=== PATIENT | male | born 1965 | race Caucasian/White ===

== ENCOUNTER → 2020-05-04 09:43 | Outpatient (BNVA) | payer MEDICAID, SELFPAY | PROVIDERS: PCP Internal Medicine Geriatric Medicine; Referring Provider Internal Medicine Geriatric Medicine; Visit Provider Surgery | DX: K40.90 Unilateral inguinal hernia, without obstruction or gangrene, not specified as recurrent (principal) | CPT/HCPCS: 99212 ==

== ENCOUNTER 2020-05-16 08:55 | Day surgery (SDC) | payer MEDICAID, SELFPAY ==
[2020-05-11 09:22] VITALS: BMI 27.2
[2020-05-16] VITALS (14 sets, daily range): BP systolic 120–185; BP diastolic 74–101; PULSE 56–87; RESP 10–22; TEMP 36.8–36.9; O2SAT 93–98
[2020-05-16] MEDS: ceFAZolin Sodium/Dextrose,Iso 2 GM/50 ML PIGGYBACK IV (09:46)
--- NOTE | 2020-05-16 10:02 | MHC.SHP ---
Pre-Procedural Eval Section B Chief Complaint: Left Inguinal Hernia Allergies: Allergies Allergy/AdvReac Type Severity Reaction Status Date / Time Penicillins [PENICILLINS] Allergy Unknown UNKNOWN Verified 05/11/20 09:32 Plan Patient has been examined and remains a candidate for the planned procedure
--- NOTE | 2020-05-16 10:37 | HO.ANESPROP2 ---
[facility] Past Medical History Medical History Anemia Depression Hepatitis C Left inguinal hernia Polycystic kidney disease Family History Family History Sister History of lung cancer Maternal Aunt History of leukemia Family history of brain aneurysm Surgical History Surgical History History of liver biopsy History of right knee surgery Social History Social History Alcohol intake: never Smoking Status: Current every day smoker Cigarettes Per Day: 5 Substance Use Type: Heroin Last Used Substance Other:: 04/2019, on methadone Advance Directives: No Advance Directives Information Provided: No Advance Directives on File: No Meds Allergies Allergy/AdvReac Type Severity Reaction Status Date / Time Penicillins [PENICILLINS] Allergy Unknown UNKNOWN Verified 05/11/20 09:32 Home Medications Medication Instructions Recorded Confirmed Type clonidine HCl 0.1 mg tablet 0.1 mg PO DAILY tab 05/04/20 05/11/20 History hydroxyzine pamoate 50 mg capsule 75 mg PO BEDTIME cap 05/04/20 History methadone 10 mg/mL oral concentrate 90 mg PO DAILY ml 05/04/20 05/16/20 History mirtazapine 30 mg tablet 30 mg PO DAILY 05/04/20 05/11/20 History Exam Exam Date and Time: May 16, 2020 1037 Height,Weight and Vital Signs: Height 5 ft 10 in Weight 86.183 kg Last Vital Signs Temp 98.2 F 05/16/20 09:35 Pulse 56 05/16/20 09:35 Resp 18 05/16/20 09:35 BP 135/85 05/16/20 09:35 Pulse Ox 97 05/16/20 09:35 Airway Mallampati Class: II TM Dist: >3cm Neck ROM: Limited Assessment and Plan Assessment Anesthesia Assessment: Anesthesia Plan Discussed and Chart Reviewed Final Anesthetic Review NPO: Yes ASA Class: III Final Preanesthetic Review: No Changes in Pt Med Stat, Meds/Allgs Chart Reviewed, Consent Obtained/Reviewed and Anes Risks/Benef Reviewed Patient Risk: Intermediate Procedure Risk: Low Assessment/Block/Sedation in SS: Assess/Block/Sedation-SS Anesthetic Plan Anesthetic Plan: GA Disposition: Standard PACU
--- NOTE | 2020-05-16 11:22 | PM.OP ---
Brief Operative Note Date of Service: 05/16/20 Pre-op diagnosis: LIH, chornically incarcerated with omentum Post-op diagnosis: same Procedure: repair of LIH with mesh Implants: mesh Surgeon: Sam Rice MD Anesthesia: GLMA Alfalfa Dehydrator Operator: Aleisha Harkins Estimated blood loss (mL): 10 Pathology: other (sac) Condition: stable Disposition: PACU
[2020-05-16] MEDS: ondansetron HCL 4 MG/2 ML VIAL IVPUSH (11:40)
[2020-05-16] MEDS: oxyCODONE HCl Immed Release 5 MG TABLET PO ×2 (11:41→12:57)
[2020-05-16] MEDS: fentaNYL citrate/PF 100 MCG/2 ML VIAL 50 MCG IVPUSH ×3 (11:42→12:04)
--- NOTE | 2020-05-16 12:21 | OP_ITS ---
SURGEON: Sam Rice MD INDICATIONS: The patient is a 54-year-old male, who has had a mass in the left groin. This was partially reducible. The patient states that he could feel this in his scrotum as well. This appeared to be an inguinal scrotal hernia. In view of symptoms, he wanted to proceed with repair. He understood technique of repair with mesh. He was aware of the risks, benefits, and alternatives. He did have significant comorbid conditions including chronic kidney disease as well as hepatitis C, but otherwise, he appeared to be in appropriate for surgical intervention. PREOPERATIVE DIAGNOSIS: Chronically incarcerated left inguinal hernia. POSTOPERATIVE DIAGNOSIS: Chronically incarcerated left inguinal hernia with omentum, indirect. PROCEDURE PERFORMED: Repair of chronically incarcerated left inguinal hernia. ESTIMATED BLOOD LOSS: About 5 cc. The patient was extubated without difficulty and transferred to recovery room with stable vital signs. COMPLICATIONS: The patient tolerated the procedure well. There were no complications noted. Initial and final counts of sponges and instruments were correct. ANESTHESIA: ASSISTANTS: SPECIMENS: POULTRY SCALDER: Aleisha Harkins PA-C. DESCRIPTION OF PROCEDURE: He was brought to the operating room and placed in supine position under general anesthesia via laryngeal mask airway. The left groin was prepped and draped in usual sterile fashion. A surgical time-out was done. The patient received cefazolin 2 g IV preoperatively. I infiltrated the planned line of incision using lidocaine 1%. I made a generous incision along an imaginary line from anterior-superior iliac spine to the pubic ramus using blade 15. This was carried down to full-thickness skin and thick subcutaneous fat until we were able to visualize the external oblique aponeurosis and external ring. I bluntly dissected the external ring to expose this. I made an incision on the fibers of the external ring using blade 15 extended inferomedially to connect with the external ring. At this point, therefore, the inguinal canal was entered. I bluntly dissected the underside of the external oblique aponeurosis to create space for the mesh. Examination of the spermatic cord and the inguinal canal revealed a very large sac. I initially attempted to do blunt dissection of the spermatic cord along with its contents including the sac using an index finger. However, in view of very large size, I was unable to pass my finger around this. The hernia contents seem to travel all the way into the scrotum as well. In view of the size of this massive hernia, I felt that it would be unable to define the cord contents until we were able to reduce this. I therefore had to open the hernia sac. Large amount of omentum was noted, which has been chronically incarcerated within the sac. I pulled up the omentum all the way from the scrotum and brought this on the field. This was able to reduce the entire omentum back through the internal ring completely, despite the large amount of omentum that was present. By doing so, I was able to clearly visualize the rest of the sac from both within and outside of this sac itself. This was very large sac and was very intimately adherent to the rest of the cord contents. I was able to identify the vas deferens along with accompanying vessels. I the sac gently from the rest of the cord contents by using blunt dissection. In view of the very large sac, I excised this using electrocautery and part of this was sent as specimen. We made sure that the edges of the divided sac was hemostatic. Once hemostasis was ensured, this was an indirect hernia as the entire hernia contents were reduced through the internal ring. I then used a large-sized Prolene plug and used to reenforce the internal ring. The plug was secured with Prolene 2-0 suture to the shelving edge of the inguinal ligament laterally and the internal oblique superiorly and medially using Prolene 2-0 sutures through the inner leaves of the plug. I reinforced the floor of the canal with keyhole mesh. The tails of the mesh were passed around the cord at the level of internal ring and was secured with Prolene 2-0 sutures. I flattened the mesh in the floor of the canal. This mesh was secured with Prolene 2-0 sutures to the shelving edge of the inguinal ligament laterally and the internal oblique superiorly and medially as well as the pubic ramus inferomedially. We observed for hemostasis. We then copiously irrigated. We then proceeded to close the fascia of the external oblique aponeurosis in a running Dexon 2-0 stitch to re-create the external ring. The thick subcutaneous layer was reapposed with Dexon 3-0 sutures. Skin closure achieved with Dexon 4-0 subcuticular running stitch. Steri-Strips and dressings were applied. The incision was infiltrated with Marcaine 0.5% for postop analgesia. The procedure was then completed. MD KACEY Avila/MASON / [id number]
--- NOTE | 2020-05-16 14:39 | HO.POSTANES ---
Post Anesthesia Evaluation Post Anesthesia Evaluation Vital Signs: Vital Signs Temp Pulse Resp BP Pulse Ox 05/16/20 12:55 98.5 F 77 16 120/80 95 05/16/20 12:25 62 18 138/74 98 05/16/20 12:10 66 16 130/86 97 05/16/20 12:05 67 14 142/83 H 98 05/16/20 12:04 16 05/16/20 11:55 63 12 147/92 H 98 05/16/20 11:49 20 05/16/20 11:45 69 10 L 174/79 H 98 05/16/20 11:42 22 H 05/16/20 11:40 75 15 182/101 H 94 05/16/20 11:35 74 20 185/87 H 94 05/16/20 11:30 86 20 172/97 H 93 05/16/20 11:25 98.5 F 87 16 179/87 H 96 05/16/20 09:35 98.2 F 56 18 135/85 97 Anesthesia: General LMA Mental Status: Awake Pain Control: Satisfactory Nausea/Vomiting: None Hydration: Adequate Anesthesia-Related Issues: No Anes. Related Issues
== END 2020-05-16 13:33 | disposition home or self-care (01) ==
PROVIDERS: PCP Internal Medicine Geriatric Medicine; Visit Provider Surgery
PROC: (CPT 49507; principal; 2020-05-16 11:20)
DX: K40.30 Unilateral inguinal hernia, with obstruction, without gangrene, not specified as recurrent (principal); B19.20 Unspecified viral hepatitis C without hepatic coma; F32.9 Major depressive disorder, single episode, unspecified; Z88.0 Allergy status to penicillin; Q61.3 Polycystic kidney, unspecified; F17.210 Nicotine dependence, cigarettes, uncomplicated; F11.20 Opioid dependence, uncomplicated; Z79.899 Other long term (current) drug therapy
CPT/HCPCS: 49507; 88302; C1781; J0690; J1100; J2405; J3010

== ENCOUNTER → 2020-05-29 13:09 | Outpatient (BNVA) | payer MEDICAID, SELFPAY | PROVIDERS: PCP Internal Medicine Geriatric Medicine; Visit Provider Surgery | DX: K40.90 Unilateral inguinal hernia, without obstruction or gangrene, not specified as recurrent (principal) | CPT/HCPCS: 99212 ==

== ENCOUNTER 2020-12-21 08:50 | Outpatient (REF) | payer MEDICAID, SELFPAY ==
--- NOTE | ~2020-12-21 | US_ITS ---
EXAMINATION: US COMPLETE ABDOMEN WITH LIVER ELASTOGRAPHY CLINICAL INFORMATION: Chronic viral hepatitis C COMPARISON: Previous ultrasound February 2019 TECHNIQUE: Real-time imaging of the abdominal viscera. Noninvasive ultrasound liver fibrosis assessment is performed using Su ElastPQ point quantification shear wave elastography (pSWE) with a C5-2 MHz transducer. Multiple elastography samples are obtained. FINDINGS: PANCREAS: Normal. ABDOMINAL AORTA: There is mild dilatation of the distal abdominal aorta measuring 2.3 x 2.8 cm. The abdominal aorta is otherwise normal in caliber. INFERIOR VENA CAVA: Visualized portions are normal. LIVER: Liver echotexture is slightly increased. Liver echotexture is slightly heterogeneous. The liver is normal in size and contour. There is a cyst in the right lobe of the liver measuring 8 mm. No other focal liver lesion is seen. Intrahepatic biliary duct dilatation. The right lobe measures 14 cm in length. The left lobe measures 12 cm in length. Portal flow is normal/hepatopedal Shear wave liver elastography median stiffness is 2.4 m/s (reference: normal median stiffness is 1.3 m/s or less). IQR/median stiffness to assess sampling precision is 0.2 (reference: good quality data set is IQR/median stiffness of 0.15 or less). GALLBLADDER: Normal. The gallbladder is physiologically distended without evidence of stones, sludge, polyps, wall thickening or pericholecystic fluid. COMMON BILE DUCT: Normal in caliber measuring 0.4 cm in diameter. RIGHT KIDNEY: Polycystic kidney. Renal parenchyma is essentially replaced with cysts. No stone, mass or hydronephrosis seen. The right kidney measures 14.5 cm. LEFT KIDNEY: Polycystic kidney. Renal parenchyma is essentially replaced with cysts. No stone, mass or hydronephrosis seen. The left kidney measures 14.5 cm.. SPLEEN: The spleen is slightly enlarged. The spleen measures 13.2 cm in maximum dimension. FREE FLUID: None. US/US abdomen comp w elastography IMPRESSION: 1. Impression: Echogenic slightly heterogeneous appearing liver. No evidence of cirrhosis. Small simple appearing cyst in the right lobe. No other focal liver lesion. Slightly dilated distal abdominal aorta. Polycystic kidneys. 2. Liver elastography: Limited due to sampling error. Liver stiffness is increased suggestive of clinically significant liver disease. REFERENCE: Society of Radiologists in Ultrasound Liver Stiffness Thresholds (2020): LIVER STIFFNESS THRESHOLDS: *Liver Stiffness equal or less than 1.3 m/s: High probability of being normal. *Liver Stiffness less than 1.7 m/s: In the absence of other known clinical signs, rules out compensated advanced chronic liver disease. *Liver Stiffness 1.7-2.1 m/s: Suggestive of compensated advanced chronic liver disease but need further test for confirmation. *Liver Stiffness over 2.1 m/s: Rules in compensated advanced chronic liver disease. *Liver Stiffness over 2.4 m/s: Suggestive of clinically significant portal hypertension. QUALITY OF DATA SET: *IQR/Median value equal or less than 0.15 implies a quality data set. *IQR/Median value over 0.15 implies a poor quality data set. SIGNIFICANT CHANGE FROM PRIOR EXAM: Significant change if liver stiffness measurement is 10% or greater from prior exam. OTHER CONSIDERATIONS: The stage of liver fibrosis may be overestimated in the setting of acute hepatitis, liver inflammation, elevated liver function tests, hepatic vascular congestion, obstructive cholestasis, non-fasting state, and infiltrative diseases such as amyloidosis and lymphoma. In some patients with NAFLD, the liver stiffness thresholds for compensated advanced chronic liver disease may be lower. In causes other than viral hepatitis and NAFLD, liver stiffness thresholds are not well established.
== END 2020-12-21 08:51 | disposition home or self-care (01) ==
LOC: HO.US 08:50
PROVIDERS: Visit Provider Internal Medicine
DX: B18.2 Chronic viral hepatitis C (principal)
CPT/HCPCS: 76705; 76981

== ENCOUNTER 2021-04-10 08:54 | Emergency (ER) | payer MEDICAID, SELFPAY ==
[2021-04-10 08:59] VITALS: BP 153/89; PULSE 70; RESP 16; TEMP 37.2; O2SAT 97; BMI 21.5
[2021-04-10] MEDS: cephALEXin 500 MG CAPSULE PO (09:49)
[2021-04-10] MEDS: Lidocaine HCl 1 % MPF 5 ML VIAL SUBCUT (09:50)
--- NOTE | 2021-04-10 10:15 | ED.WOUNDLAC ---
HPI - Wound/Laceration General Chief Complaint: Wound/Laceration Stated Complaint: inf wound Time Seen by Provider: 04/10/21 09:28 Source: patient Mode of arrival: ambulatory Limitations: no limitations History of Present Illness HPI narrative: 55-year-old male presenting to the ED with an abscess to his right lower back after he had a fall approximately 1 week ago and landed on some glass he was able to take out the piece a glass although since then he has been developed some swelling and redness. He denies any other injury complaints or concerns. Denies any other symptoms complaints or concerns. Onset (ago): week(s) (One week) Location: back Context: accidental Associated symptoms: pain Related Data Home Medications Medication Instructions Recorded Confirmed clonidine HCl 0.1 mg tablet 0.1 mg PO DAILY tab 05/04/20 05/11/20 hydroxyzine pamoate 50 mg capsule 75 mg PO BEDTIME cap 05/04/20 (Vistaril) methadone 10 mg/mL oral 90 mg PO DAILY ml 05/04/20 05/16/20 concentrate (Methadone Intensol) mirtazapine 30 mg tablet (Remeron) 30 mg PO DAILY 05/04/20 05/11/20 Previous Rx's Medication Instructions Recorded oxycodone 5 mg tablet 5 mg PO Q4H PRN #30 tab 05/16/20 acetaminophen 500 mg tablet 1,000 mg PO QID PRN #14 tab 04/10/21 (Tylenol Extra Strength) cephalexin 500 mg capsule 500 mg PO Q6H 10 Days #40 cap 04/10/21 doxycycline monohydrate 100 mg 100 mg PO BID 10 Days #20 cap 04/10/21 capsule ibuprofen 800 mg tablet 800 mg PO Q8H PRN #14 tab 04/10/21 Allergies Allergy/AdvReac Type Severity Reaction Status Date / Time Penicillins [PENICILLINS] Allergy Unknown UNKNOWN Verified 05/29/20 13:51 Review of Systems Review of Systems: Constitutional : No Fever, No Chills, Cardiovascular : No Chest Pain, No SOB Respiratory : No Dyspnea Gastrointestinal : No abdominal pain Musculoskeletal : No Joint Swelling Skin : positive skin erythema/warmth to touch/tender to palpation and fluctuance, no skin laceration, No Foreign bodies, No rash Neuro : No Weakness, No Numbness/tingling Psych : No SI/HI/thoughts of self injury Yes all other systems are reviewed and are negative [facility] Past Medical History Attestation statement: The following information was validated with the patient. Medical History Anemia Depression Hepatitis C Left inguinal hernia Polycystic kidney disease Surgical History History of liver biopsy History of right knee surgery Family History Family History Sister History of lung cancer Maternal Aunt History of leukemia Family history of brain aneurysm Social History Social History Alcohol intake: never Cigarettes Per Day: 5 Substance Use Type: Heroin Advance Directives: No Advance Directives Information Provided: No Physical Exam Vital Signs: Vital Signs: Last Vital Signs Temp 99.0 F 04/10/21 08:59 Pulse 70 04/10/21 08:59 Resp 16 04/10/21 08:59 BP 153/89 H 04/10/21 08:59 Pulse Ox 97 04/10/21 08:59 Body Mass Index 21.5 vital signs have been reviewed as normal and appeared to be correct. Blood pressure hypertensive 153/89. Herat rate normal. Respiration rate normal. Temperature normal. Oxygen saturation normal. Appearance: Alert. Oriented X3. No acute distress. Head: Normal external exam. Normocephalic. Atraumatic. Eyes: PERRLA. EOMI. Conjunctiva and sclera normal. Eyelids normal. ENT: Pharynx normal. Uvula midline. Moist mucous membranes. Neck: Normal inspection. Neck supple. FROM. CVS: Normal heart rate and rhythm. Respiratory: No respiratory distress. Painless inspiration. Skin: To right back patient has a moderate size fluctuant abscess/wound not currently draining although fluctuant and noted to have surrounding erythema/warm to touch and tender to palpation. No streaking/induration/foreign bodies or purulent drainage noted at this time. The rest of the Skin is warm and dry. Normal skin color. Normal skin turgor. No additional rashes/lesions/lacerations noted. Extremities: No lower extremity edema. Extremities exhibit normal range of motion. Extremities nontender. Neuro: Oriented X 3. No motor deficit. No sensory deficit. Reflexes normal. Normal steady gait. No focal neuro deficits noted. Vascular: + radial pulses/+ 2 distal pedal pulses/+2 dorsalis pedis b/l. Normal cap refill. No cyanosis noted to upper extremity nails and lower extremity toes nails. Course Course Course Narrative: Patient now status post I&D of right lower back abscess despite providing 5 mL of lidocaine patient had moderate pain and he wanted me to stop and he did not want me to place any packing therefore explained to him that he needs to return in 2 days for recheck wound and to return sooner if any worsening symptoms will DC home with doxycycline and Keflex along with Motrin Tylenol as patient is on methadone and to follow-up with primary care provider as well. Patient understand agree to this plan. MDM - Wound/Laceration Medical Records Attestation: I reviewed the patient's medical records. Procedures Abscess I/D Site: back Side (if applicable): right Local Anesthetic: lidocaine 1% Amount of anesthesia used (mL): 5 Technique: incised with blade Amount of fluid expressed (mL): 10 Sent for culture/gram staining?: No Irrigation: Yes Packing used?: none Complications: pain and other (Otherwise no other complications) Discharge Plan Discharge Clinical Impression: Abscess, Cellulitis of back Patient Disposition: Home, Self-Care Instructions: Cellulitis (ED), Abscess Incision and Drainage (DC) Prescriptions: New ibuprofen 800 mg tablet 800 mg PO Q8H PRN (Reason: pain) Qty: 14 RF: 0 acetaminophen [Tylenol Extra Strength] 500 mg tablet 1,000 mg PO QID PRN (Reason: fever or pain) Qty: 14 RF: 0 doxycycline monohydrate 100 mg capsule 100 mg PO BID 10 Days Qty: 20 RF: 0 cephalexin 500 mg capsule 500 mg PO Q6H 10 Days Qty: 40 RF: 0 No Action oxycodone 5 mg tablet 5 mg PO Q4H PRN (Reason: pain) Qty: 30 RF: 0 methadone [Methadone Intensol] 10 mg/mL concentrate 90 mg PO DAILY RF: 0 mirtazapine [Remeron] 30 mg tablet 30 mg PO DAILY RF: 0 clonidine HCl 0.1 mg tablet 0.1 mg PO DAILY RF: 0 hydroxyzine pamoate [Vistaril] 50 mg capsule 75 mg PO BEDTIME RF: 0 Referrals: Jess Lau PA [Emergency Midlevel Provider] - 2 days (for recheck wound/abscess/cellulitis) Name,MD Frank [Primary Care Provider] - 2 days Stand Alone Forms: Work/School Release Print Language: Malawian
== END 2021-04-10 10:26 | disposition home or self-care (01) ==
PROVIDERS: Emergency Provider Emergency Medicine; PCP Internal Medicine Geriatric Medicine
DX: L02.212 Cutaneous abscess of back [any part, except buttock and flank] (principal); L03.312 Cellulitis of back [any part except buttock and flank]; M54.50 Low back pain, unspecified; F11.10 Opioid abuse, uncomplicated; Z79.899 Other long term (current) drug therapy
CPT/HCPCS: 10060; 99283; 99284

== ENCOUNTER 2021-06-26 16:53 | Emergency (ER) | payer MEDICAID, SELFPAY ==
--- NOTE | 2021-06-26 | ECG_ITS ---
Test Reason : MEDICAL CLEARANCE Blood Pressure : / mmHG Vent. Rate : 048 BPM Atrial Rate : 048 BPM P-R Int : 174 ms QRS Dur : 086 ms QT Int : 464 ms P-R-T Axes : 070 -16 060 degrees QTc Int : 414 ms Sinus bradycardia Otherwise normal ECG No previous ECGs available Referred By: Generic ED Physician Electronically Signed By:Calin Gonzales
--- NOTE | ~2021-06-26 | XR_ITS ---
EXAMINATION: XR CHEST CLINICAL INFORMATION: TB false positive COMPARISON: None TECHNIQUE: Frontal view of the chest was obtained. FINDINGS: No significant abnormality is noted involving the heart, lungs, mediastinum, bony thorax or soft tissues. XR/XR chest 1V IMPRESSION: Unremarkable examination.
[2021-06-26 18:29] VITALS: BP 178/94; PULSE 59; RESP 16; TEMP 36.7; O2SAT 96; BMI 21.5
[2021-06-26 21:24] LABS: COVID-19 Test Negative (Negative)
[2021-06-26 21:30] LABS: Alanine Aminotransferase 29 U/L (0-40); Alkaline Phosphatase 70 U/L (39-117); Anion Gap 14 (12-20); Aspartate Amino Transferase 40 U/L (5-37); Bilirubin Total 0.5 mg/dL (0.0-1.0); Blood Urea Nitrogen 51 mg/dL (9-16); Calcium 9.5 mg/dL (8.4-10.2); Carbon Dioxide 24 mmol/L (22-29); Chloride 108 mmol/L (96-108); Creatinine Clr Calc Pharmacy 16.4; Estimated Glomerular Filt Rate 12; Glucose Random 118 mg/dL (60-115); Potassium 4.6 mmol/L (3.3-5.1); Sodium 141 mmol/L (135-145); Total Protein 7.5 g/dL (6.5-8.0)
[2021-06-26 21:33] LABS: Hematocrit 35.6 % (42.0-52.0); Hemoglobin 11.3 g/dl (14.0-18.0); Mean Corpuscular HGB Conc 31.7 g/dl (31.0-36.0); Mean Corpuscular Hemoglobin 26.6 pg (27.0-33.0); Mean Corpuscular Volume 83.8 fL (80.0-98.0); Mean Platelet Volume 10.2 fL (9.4-12.4); Platelet Count 135 X10*3/uL (160-400); Red Blood Count 4.25 X10*6/uL (4.60-5.80); Red Cell Distribution Width 15.9 % (11.0-16.0); White Blood Count 4.4 X10*3/uL (4.8-10.8)
--- NOTE | 2021-06-26 22:28 | ED.MEDCLEAR ---
HPI - Medical Clearance General Chief complaint: Medical Clearance Stated complaint: pt needs medical clearance for treatment Time Seen by Provider: 06/26/21 22:28 Related Information Home Medications Medication Instructions Recorded Confirmed clonidine HCl 0.1 mg tablet 0.1 mg PO DAILY tab 05/04/20 05/11/20 hydroxyzine pamoate 50 mg capsule 75 mg PO BEDTIME cap 05/04/20 (Vistaril) methadone 10 mg/mL oral 90 mg PO DAILY ml 05/04/20 05/16/20 concentrate (Methadone Intensol) mirtazapine 30 mg tablet (Remeron) 30 mg PO DAILY 05/04/20 05/11/20 Previous Rx's Medication Instructions Recorded oxycodone 5 mg tablet 5 mg PO Q4H PRN #30 tab 05/16/20 acetaminophen 500 mg tablet 1,000 mg PO QID PRN #14 tab 04/10/21 (Tylenol Extra Strength) cephalexin 500 mg capsule 500 mg PO Q6H 10 Days #40 cap 04/10/21 doxycycline monohydrate 100 mg 100 mg PO BID 10 Days #20 cap 04/10/21 capsule ibuprofen 800 mg tablet 800 mg PO Q8H PRN #14 tab 04/10/21 Allergies Allergy/AdvReac Type Severity Reaction Status Date / Time Penicillins [PENICILLINS] Allergy Unknown UNKNOWN Verified 05/29/20 13:51 PMFSH Past Medical History Medical History Anemia Depression Hepatitis C Left inguinal hernia Polycystic kidney disease Surgical History History of liver biopsy History of right knee surgery Family History Family History Sister History of lung cancer Maternal Aunt History of leukemia Family history of brain aneurysm Social History Social History Alcohol intake: never Cigarettes Per Day: 5 Substance Use Type: Heroin Advance Directives: No Advance Directives Information Provided: Yes Physical Exam Vital Signs: Vital Signs: Last Vital Signs Temp 98.1 F 06/26/21 18:29 Pulse 59 06/26/21 18:29 Resp 16 06/26/21 18:29 BP 178/94 H 12/28/21 18:29 Pulse Ox 96 06/26/21 18:29 BMI result Body Mass Index 21.5 MDM - Medical Clearance Lab Data Result diagrams: 06/26/21 20:57 06/26/21 20:57 Labs: Lab Results 06/26/21 06/26/21 06/26/21 Range/Units 20:57 20:57 20:57 WBC 4.4 L (4.8-10.8) X10*3/uL RBC 4.25 L (4.60-5.80) X10*6/uL Hgb 11.3 L (14.0-18.0) g/dl Hct 35.6 L (42.0-52.0) % MCV 83.8 (80.0-98.0) fL MCH 26.6 L (27.0-33.0) pg MCHC 31.7 (31.0-36.0) g/dl RDW 15.9 (11.0-16.0) % Plt Count 135 L (160-400) X10*3/uL MPV 10.2 (9.4-12.4) fL Absolute Nucleated RBC 0.000 (0.0-0.012) X10*3/uL Nucleated RBC % (auto) 0.0 (0.0-0.2) /100WBC Sodium 141 (135-145) mmol/L Potassium 4.6 (3.3-5.1) mmol/L Chloride 108 (96-108) mmol/L Carbon Dioxide 24 (22-29) mmol/L Anion Gap 14 (12-20) BUN 51 H (9-16) mg/dL Creatinine 4.89 H* (0.5-1.4) mg/dL Estim Creat Clear Calc 16.4 Estimated GFR 12 Random Glucose 118 H (60-115) mg/dL Calcium 9.5 (8.4-10.2) mg/dL Total Bilirubin 0.5 (0.0-1.0) mg/dL AST 40 H (5-37) U/L ALT 29 (0-40) U/L Alkaline Phosphatase 70 (39-117) U/L Total Protein 7.5 (6.5-8.0) g/dL Albumin 4.0 (3.5-5.0) g/dL COVID-19 (PRETTY) Negative (Negative) COVID-19 Clin Com See Note Discharge Plan Discharge Prescriptions: No Action oxycodone 5 mg tablet 5 mg PO Q4H PRN (Reason: pain) Qty: 30 RF: 0 ibuprofen 800 mg tablet 800 mg PO Q8H PRN (Reason: pain) Qty: 14 RF: 0 acetaminophen [Tylenol Extra Strength] 500 mg tablet 1,000 mg PO QID PRN (Reason: fever or pain) Qty: 14 RF: 0 doxycycline monohydrate 100 mg capsule 100 mg PO BID 10 Days Qty: 20 RF: 0 cephalexin 500 mg capsule 500 mg PO Q6H 10 Days Qty: 40 RF: 0 methadone [Methadone Intensol] 10 mg/mL concentrate 90 mg PO DAILY RF: 0 mirtazapine [Remeron] 30 mg tablet 30 mg PO DAILY RF: 0 clonidine HCl 0.1 mg tablet 0.1 mg PO DAILY RF: 0 hydroxyzine pamoate [Vistaril] 50 mg capsule 75 mg PO BEDTIME RF: 0
== END 2021-06-26 23:15 | disposition left against medical advice (07) ==
PROVIDERS: Emergency Provider Emergency Medicine; PCP Internal Medicine Geriatric Medicine
DX: R68.89 Other general symptoms and signs (principal); Z20.822 Contact with and (suspected) exposure to COVID-19
CPT/HCPCS: 36415; 71045; 80053; 85027; 87635; 93005; 99283; 99284

== ENCOUNTER 2024-04-26 15:36 | Outpatient (REF) | payer MEDICAID, SELFPAY ==
[2024-04-26 16:35] LABS: Estimated Average Glucose 111 mg/dL; Hemoglobin A1C 140.7807 umol/L; Hemoglobin A1c % 5.5 % (<6.0); Total Hemoglobin (HGBA1C) 3826.3197 umol/L
[2024-04-26 16:50] LABS: Alanine Aminotransferase 39 U/L (0-40); Albumin Level 4.4 g/dL (3.5-5.0); Alkaline Phosphatase 111 U/L (39-117); Aspartate Amino Transferase 48 U/L (5-37); Bilirubin Direct 0.2 mg/dL (0.0-0.5); Bilirubin Total 0.7 mg/dL (0.0-1.0); Cholesterol 193 mg/dL (<200); HDL Cholesterol 45 mg/dL (>40); LDL Cholesterol Calculated 125 mg/dL (<100); Total Protein 8.9 g/dL (6.5-8.0); Triglycerides 116 mg/dL (<150)
[2024-04-26 17:10] LABS: Prostate Specific Antigen Scr 0.38 ng/mL (<0.05-4.0)
[2024-04-26 18:11] LABS: Reflex LDLD? No
== END 2024-04-26 15:37 | disposition home or self-care (01) ==
LOC: HO.HHCL 15:36
PROVIDERS: Visit Provider Family Medicine
DX: N18.6 End stage renal disease (principal); Z13.1 Encounter for screening for diabetes mellitus; Z13.220 Encounter for screening for lipoid disorders; Z12.5 Encounter for screening for malignant neoplasm of prostate
CPT/HCPCS: 36415; 80061; 80076; 83036; 84153